=== PATIENT | male | born 1970 | race Caucasian/White ===

== ENCOUNTER 2021-04-03 14:03 | Emergency (ER) | payer BC ==
[~2021-04-03] VITALS: Ht 172.7 cm; Wt 78.3 kg
[2021-04-03] MEDS ORDERED: BOOSTRIX/ADACEL VACCINE (DIPHTH/PERTUSS/ACELL/TETANUS) 0.5ML SYR IM ONE (14:35)
--- NOTE | 2021-04-03 14:52 | REP ---
INDICATION: fb left thumb COMPARISON: None. TECHNIQUE: AP, lateral, bilateral oblique views left 1st digit. FINDINGS: Foreign body consistent with portion of fishhook is identified in the soft tissues adjacent to the distal phalanx. No osseous involvement noted. IMPRESSION: Foreign body in the soft tissues. No osseous involvement noted. <Electronically signed by Blake Almazan > 04/03/21 [id number]
[2021-04-03] MEDS ORDERED: LIDOCAINE 2% MDV 20ML VIAL As Ordered ONE (15:12)
[2021-04-03] MEDS ORDERED: LIDOCAINE 2% MDV 20ML VIAL SC ONE (15:15)
--- OUTSIDE RECORDS SUMMARY | 2021-04-03 15:15 | CCD | Continuity of Care Document ---
Author Author Reymundo BRIONES M.D. Organization Unknown Address [address] [place] [address], Room [address] [place] [id number] Phone [phone] Problems Description No Information Available Social History Type Date Description Comments Sex Unknown Allergies, Adverse Reactions, Alerts Description No Information Available Medications Description No Information Available Immunizations CPT Code Status Date Vaccine Lot # [id number] Given 10/13/2020 Covid-19 Pfizer Vaccine 2nd Dose 30 mcg/ 0[place] [id number] Given 10/13/2020 Covid-19 Pfizer Vaccine 1st Dose 30 mcg/ 0.3 mL Im [id number] Given 09/22/2020 Covid-19 Pfizer Vaccine 1st Dose 30 mcg/ 0.3 mL Im [id number] Vital Signs Description No Information Available Results Description No Information Available Procedures Date Code Description Status 10/13/2020 0002A Covid-19 Pfizer-Biontech Vaccine Administration - 2nd Dose Completed 09/22/2020 0001A Covid-19 Pfizer-Biontech Vaccine Administration - 1st Dose Completed Medical Devices Description No Information Available Encounters Description No Information Available Assessments Date Code Description Provider 10/13/2020 Z23 Encounter for immunization Kavon Briones M.D. 09/22/2020 Z23 Encounter for immunization Kavon Briones M.D. Plan of Treatment No Information Available Functional Status Description No Information Available Mental Status Description No Information Available Referrals Description No Information Available
--- OUTSIDE RECORDS SUMMARY | 2021-04-03 15:15 | CCD ---
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 Name Role Phone Nate, S Tim PA Unavailable Unavailable Nate, S Tim PA Unavailable Unavailable Nate, S Tim PA Unavailable Unavailable Nate, S Tim PA Unavailable Unavailable Nate, S Tim PA Unavailable Unavailable Nate, S Tim PA Unavailable Unavailable Nate, S Tim PA Unavailable Unavailable Nate, S Tim PA Unavailable Unavailable Nate, S Tim PA Unavailable Unavailable Nate, S Tim PA Unavailable Unavailable Nate, S Tim PA Unavailable Unavailable Nate, S Tim PA Unavailable Unavailable Nate, S Tim PA Unavailable Unavailable Nate, S Tim PA Unavailable Unavailable Nate, S Tim PA Unavailable Unavailable Nate, S Tim PA Unavailable Unavailable Nate, S Tim PA Unavailable Unavailable Nate, S Tim PA Unavailable Unavailable Nate, S Tim PA Unavailable Unavailable Nate, S Tim PA Unavailable Unavailable Nate, S Tim PA Unavailable Unavailable Nate, S Tim PA Unavailable Unavailable Nate, S Tim PA Unavailable Unavailable Nate, S Tim PA Unavailable Unavailable Nate, S Tim PA Unavailable Unavailable Nate, S Tim PA Unavailable Unavailable Nate, S Tim PA Unavailable Unavailable Nate, S Tim PA Unavailable Unavailable Nate, S Tim PA Unavailable Unavailable Nate, S Tim PA Unavailable Unavailable Nate, S Tim PA Unavailable Unavailable Nate, S Tim PA Unavailable Unavailable Nate, S Tim PA Unavailable Unavailable Nate, S Tim PA Unavailable Unavailable Nate, S Tim PA Unavailable Unavailable Nate, S Tim PA Unavailable Unavailable Nate, S Tim PA Unavailable Unavailable Nate, S Tim PA Unavailable Unavailable Nate, S Tim PA Unavailable Unavailable Nate, S Tim PA Unavailable Unavailable Nate, S Tim PA Unavailable Unavailable Nate, S Tim PA Unavailable Unavailable Nate, S Tim PA Unavailable Unavailable Nate, S Tim PA Unavailable Unavailable Nate, S Tim PA Unavailable Unavailable Nate, S Tim PA Unavailable Unavailable Nate, S Tim PA Unavailable Unavailable Nate, S Tim PA Unavailable Unavailable Nate, S Tim PA Unavailable Unavailable Nate, S Tim PA Unavailable Unavailable Nate, S Tim PA Unavailable Unavailable Nate, S Tim PA Unavailable Unavailable Nate, S Tim PA Unavailable Unavailable Ty, M Christopher PA-C Unavailable Unavailable Ty, M Christopher PA-C Unavailable Unavailable Ty, M Christopher PA-C Unavailable Unavailable Ty, M Christopher PA-C Unavailable Unavailable Ty, M Christopher PA-C Unavailable Unavailable Ty, M Christopher PA-C Unavailable Unavailable Ty, M Christopher PA-C Unavailable Unavailable Ty, M Christopher PA-C Unavailable Unavailable Ty, M Christopher PA-C Unavailable Unavailable Ty, M Christopher PA-C Unavailable Unavailable Ty, M Christopher PA-C Unavailable Unavailable Ty, M Christopher PA-C Unavailable Unavailable Ty, M Christopher PA-C Unavailable Unavailable Ty, M Christopher PA-C Unavailable Unavailable Ty, M Christopher PA-C Unavailable Unavailable Ty, M Christopher PA-C Unavailable Unavailable Ty, M Christopher PA-C Unavailable Unavailable Ty, M Christopher PA-C Unavailable Unavailable Ty, M Christopher PA-C Unavailable Unavailable Ty, M Christopher PA-C Unavailable Unavailable Ty, M Christopher PA-C Unavailable Unavailable Ty, M Christopher PA-C Unavailable Unavailable Ty, M Christopher PA-C Unavailable Unavailable Ty, M Christopher PA-C Unavailable Unavailable Ty, M Christopher PA-C Unavailable Unavailable Ty, M Christopher PA-C Unavailable Unavailable Re-disclosure Warning The records that you are about to access may contain information from federally-assisted alcohol or drug abuse programs. If such information is present, then the following federally mandated warning applies: This information has been disclosed to you from records protected by federal confidentiality rules (42 CFR part 2). The federal rules prohibit you from making any further disclosure of this information unless further disclosure is expressly permitted by the written consent of the person to whom it pertains or as otherwise permitted by 42 CFR part 2. A general authorization for the release of medical or other information is NOT sufficient for this purpose. The Federal rules restrict any use of the information to criminally investigate or prosecute any alcohol or drug abuse patient.The records that you are about to access may contain highly sensitive health information, the redisclosure of which is protected by Article 27-F of the [facility] Public Health law. If you continue you may have access to information: Regarding HIV / AIDS; Provided by facilities licensed or operated by the [facility] Office of Mental Health; or Provided by the [facility] Office for People With Developmental Disabilities. If such information is present, then the following [facility] mandated warning applies: This information has been disclosed to you from confidential records which are protected by state law. State law prohibits you from making any further disclosure of this information without the specific written consent of the person to whom it pertains, or as otherwise permitted by law. Any unauthorized further disclosure in violation of state law may result in a fine or long term sentence or both. A general authorization for the release of medical or other information is NOT sufficient authorization for further disc losure. Encounters Encounter Providers Location Date Indications Data Source(s ) Outpatient Attender: Eric Ty PA-C 04/03/2021 01:05:41 PM EDT - 04/03/2021 01:41:01 PM EDT [facility] ([facility]) Outpatient Attender: Tim HALL [facility] 04/28 12:00:00 AM EST - 04/29/2020 10:46:[address] [facility] Immunizations Vaccine Date Status Description Data Source(s) Covid-19 Pfizer Vaccine 1st Dose 30 mcg/ 0.3 mL Im 1 12:00:00 AM EDT completed [facility] ([facility]) Covid-19 Pfizer Vaccine 2nd Dose 30 mcg/ 0.3 mL Im 1 12:00:00 AM EDT completed [facility] ([facility]) COVID-19 VACCINE Pfizer 10/13/2020 12:00:00 AM EDT completed [facility] Vaccine Series Complete: YESThis Data wa s Submitted to [facility] Via [facility]. Covid-19 Pfizer Vaccine 1st Dose 30 mcg/ 0.3 mL Im 11:56:00 AM EDT completed [facility] ([facility]) COVID-19 VACCINE Pfizer 09/22/2020 12:00:00 AM EDT completed [facility] Vaccine Series Complete: NOThis Data was Submitted to [facility] Via [facility]. Medications No Information Insurance Providers Payer name Policy type / Coverage type Policy ID Covered alliance party ID Covered alliance party's relationship to gillespie Policy Gillespie Plan Information [employer] [id number] Spo VYW [id number] [facility] Commercial Insurance Co. [id number] Self [id number] [employer] and Blue [employer] - [place] Blue Cross/B lue Shield [id number] Spouse [id number] [employer] Blue [employer] - [place] Blue Cross/B lue Shield [id number] Spouse [id number] [employer] [id number] Unk VYW [id number] [place] Plan [facility] Health Maintenance Organization (HMO) [id number] Self [id number] [employer] [id number] Problems, Conditions, and Diagnoses Code Display Name Description Problem Type Effective Dates Data Source(s) R35.0 Frequency of micturition Frequency of micturition Diag nosis 04/28/2020 01:52:33 PM EST [facility] Practices E78.5 Hyperlipidemia, unspecified Hyperlipidemia, unspecifie d Diagnosis 04/28/2020 01:52:33 PM EST [facility] Practices R19.7 Diarrhea, unspecified Diarrhea, unspecified Diagnosis 04/28/2020 01:52:33 PM [facility] Practices R10.9 Unspecified abdominal pain Unspecified abdominal pain Diagnosis 04/28/2020 01:52:33 PM [facility] Surgeries/Procedures Procedure Description Date Indications Data Source(s) Covid-19 Pfizer-Biontech Vaccine Administration - 2nd Dose 10/13/2020 12:00:00 AM EDT [facility] ([facility]) Covid-19 Pfizer-Biontech Vaccine Administration - 1st Dose 09/22/2020 12:00:00 AM EDT [facility] ([facility]) Results ID Date Data Source [id number] 08/28/2020 12:00:00 AM EST [facility] Name Value Range Interpretation Code Description Data Ksenia rce(s) Supporting Document(s) SARS-CoV-2 Ag [Presence] in Respiratory specimen by SHIELA Owens with probe detection negative [facility] This lab was ordered by [facility] and reported by [facility]. ID Date Data Source [id number] 04/29/2020 07:48:12 AM EST [facility]FORMATIONPatient MRN Name Date of Age Gend*PT [id number] Reymundo Nguyen 1970 49 years M ---PT Location Admission Date/Time Visit ID Attending Provider --- --- --- --- EPI ID CSN Admitting Provider [id number] ---Assessment/Plan:Diagnoses and all orders for this visit:Abdominal cramping (Primary)- CBC and differential- Comprehensive metabolic panel- Lipid panel- Celiac disease profile- IgE Allergy Food PanelDiarrhea, unspecified typePossibly IBS. Will check celiac panel and food allergy panel with labs today.Recommend trying low FODMAP diet to start. Consider trial of Bentyl as wellHyperlipidemia, unspecified hyperlipidemia typeOn statin 7+ years ago but stopped on his own and never had lipids rechecked.Check today. Work on low chol diet and exercise.Urinary frequency- POCT Urine DipstickIntermittent for years. Urine dip neg. Monitor for nowSubjective:Patient ID: Reymundo Nguyen is a 49 years male.Patient presents today to establish care. Patient states intermittent GI issuesover the past year.Abdominal PainThis is a chronic problem. The current episode started 2 years ago. The problemoccurs daily. The problem has been gradually worsening. The pain is located inthe generalized abdominal region. The pain is mild. The quality of the pain iscramping. The abdominal pain does not radiate. Associated symptoms includediarrhea and flatus. Pertinent negatives include no anorexia, constipation,fever, nausea or vomiting. Exacerbated by: unknown. He has tried nothing for thesymptoms.Intermittent diarrhea, cramping, bloating. Tried to keep food diary but wasunable to figure out cause. Cut back on dairy and eggs but still has symptoms.Had elevated lipids in the past. States at one point he was on a statin fromprevious PCP but this was 7+ years ago and has not had recheck since.PHQ-2/PHQ-9 Depression ScreeningFrequency of the following problems over the past two weeks:Little interest or pleasure in doing things: 0 - not at allFeeling down, depressed, or hopeless: 0 - not at allPHQ-2 Score: 0Interpretation of the PHQ depression score severity: NegativeThe following portions of the patient's history were reviewed and updated asappropriate:There is no problem list on file for this patient.Past Medical History:Diagnosis Date Depression HyperlipidemiaPast Surgical History:Procedure Laterality Date PILONIDAL CYST / SINUS EXCISION No Known Drug AllergiesFamily HistoryProblem Relation Age of Onset Depression Mother Hyperlipidemia Mother Depression FatherSocial HistoryTobacco Use Smoking status: Former Smoker Smokeless tobacco: Never UsedSubstance Use Topics Alcohol use: Yes Alcohol/week: 6.0 standard drinks Types: 6 Cans of beer per week Drug use: Yes Types: Marijuana.Review of SystemsConstitutional: Negative for chills and fever.HENT: Negative for congestion, ear pain and sore throat.Respiratory: Negative for cough and shortness of breath.Cardiovascular: Negative for chest pain, palpitations and leg swelling.Gastrointestinal: Positive for abdominal pain, diarrhea and flatus. Negative forabdominal distention, anorexia, blood in stool, constipation, nausea andvomiting. Patient states about 1/week "a little gassy and a little diarrhea"Skin: Negative for rash and wound.Neurological: Negative for dizziness, light-headedness and numbness.Psychiatric/Behavioral: Negative for agitation, confusion and sleep disturbance.The patient is not nervous/anxious.Objective:Vitals: BP 128/79 | Pulse 71 | Wt 77 kg (169 lb 12.8 oz) | SpO2 97%Physical ExamConstitutional: He is oriented to person, place, and time. He appearswell-developed and well- nourished. No distress.HENT:Head: Normocephalic and atraumatic.Right Ear: Tympanic membrane and ear canal normal.Left Ear: Tympanic membrane and ear canal normal.Mouth/Throat: Mucous membranes are normal. No oropharyngeal exudate or posteriororopharyngeal erythema.Eyes: Conjunctivae are normal.Neck: Neck supple. No thyromegaly present.Cardiovascular: Normal rate, regular rhythm and normal heart sounds.No murmur heard.Pulmonary/Chest: Effort normal and breath sounds normal. No respiratorydistress. He has no wheezes. He has no rales.Abdominal: Soft. Bowel sounds are normal. There is no tenderness.Lymphadenopathy: He has no cervical adenopathy.Neurological: He is alert and oriented to person, place, and time.Skin: Skin is warm and dry.Psychiatric: He has a normal mood and affect. His behavior is normal. Thoughtcontent normal. Name Value Range Interpretation Code Description Data [facility](s) Supporting Document(s) ID Date Data Source [id number] 05/01/2020 01:30:03 PM EST [facility] Name Value Range Interpretation Code Description Data [facility](s) Supporting Document(s) GLIADIN PEPTIDE IGA 9 [arb'U] (<20) Lab [facility] INTERPRET ATION OF RESULTS: < 20 UNITS [id number] UNITS WEAK POSITIVE > 30 UNITS MODERATE TO STRONG POSITIVE The following result was obtained withthe [employer]OVA QUANTA Lite Gliadin IgA II.Results obtained with other manufacturers'assay methods may not be used interchangeably.The magnitude of the reported IgA levelcannot be correlated to an endpoint titer. GLIADIN PEPTIDE IGG 2 [arb'U] (<20) Lab [facility] INTERPRET ATION OF RESULTS: < 20 UNITS [id number] UNITS WEAK POSITIVE > 30 UNITS MODERATE TO STRONG POSITIVE The following result was obtained withthe [employer]OVA QUANTA Lite Gliadin IgG II.Results obtained with other manufacturers'assay methods may not be used interchangeably.The magnitude of the reported IgG levelscannot be correlated to an endpoint titer. IGA @ 313 mg/dL (83-407) [facility] TRANSGLUTAMINASE IGA 8 [arb'U] (<20) [facility] INTERPRET ATION OF RESULTS: < 20 UNITS [id number] UNITS WEAK POSITIVE > 30 UNITS MODERATE TO STRONG POSITIVE The following result was obtained withthe Imagiin.VA QUANTA Lite h-tTG IgA TIMOTEO.Results obtained with other manufacturers'assay methods may not be used interchangeably.The magnitude of the reported IgA levelcannot be correlated to an endpoint titer.Performed at [address] [place] [address] TRANSGLUTAMINASE IGG 3 [arb'U] (<20) [facility] INTERPRET ATION OF RESULTS: < 20 UNITS [id number] UNITS WEAK POSITIVE > 30 UNITS MODERATE TO STRONG POSITIVE The following result was obtained withthe [employer] QUANTA Lite h-tTG IgG TIMOTEO.Results obtained with other manufacturers'assay methods may not be used interchangeably.The magnitude of the reported IgG levelscannot be correlated to an endpoint titer.Performed at [address] [place] [address] ID Date Data Source [id number] 04/29/2020 03:31:30 PM EST [facility] Name Value Range Interpretation Code Description Data [facility](s) Supporting Document(s) IGE, TOTAL @ 74 kU/L (<160) [facility] PEANUT RESULT <0.35 kU/L (0.00-0.35) [facility] PEANUT CLASS 0 [facility] SOYBEAN RESULT <0.35 kU/L (0.00-0.35) [facility] SOYBEAN CLASS 0 [facility] COW'S MILK RESULT <0.35 kU/L (0.00-0.35) [facility] COW'S MILK CLASS 0 [facility] ALMOND RESULT <0.35 kU/L (0.00-0.35) [facility] ALMOND CLASS 0 [facility] PECAN RESULT <0.35 kU/L (0.00-0.35) [facility] PECAN CLASS 0 [facility] CRAB RESULT <0.35 kU/L (0.00-0.35) [facility] CRAB CLASS 0 [facility] SHRIMP RESULT <0.35 kU/L (0.00-0.35) [facility] SHRIMP CLASS 0 [facility] EGG YOLK/WHITE RESULT <0.35 kU/L (0.00-0.35) [facility] EGG YOLK/WHITE CLASS 0 [facility] WALNUT RESULT <0.35 kU/L (0.00-0.35) [facility] WALNUT CLASS 0 [facility] [place] CODFISH RESULT <0.35 kU/L (0.00-0.35) [facility] CODFISH CLASS 0 [facility] WHEAT RESULT <0.35 kU/L (0.00-0.35) [facility] WHEAT CLASS 0 [facility] CORN RESULT <0.35 kU/L (0.00-0.35) [facility] CORN CLASS 0 [facility] REFERENCE RANGES FOR SPECIFIC IgE TESTS: IgE (kU/L) INTERPRETATION < 0.35 CLASS 0 ABSENT/VERY LOW 0.35 to 0.69 CLASS 1 LOW 0.70 to 3.49 CLASS 2 MODERATE 3.50 to 17.49 CLASS 3 HIGH17.50 to 52.49 CLASS 4 VERY HIGH52.50 to 99.99 CLASS 5 VERY HIGH > 99.99 CLASS 6 VERY HIGH ID Date Data Source [id number] 04/28/2020 03:10:[address] [facility] Name Value Range Interpretation Code Description Data [facility] rce(s) Supporting Document(s) WBC 5.9 K/uL 4.2-10.4 [facility] Neutrophil % 65.5 %N 37.0-82.2 [facility] Lymphocyte % 27.2 %L 10.6-50.6 [facility] Monocyte % 6.8 %M 2.8-13.0 [facility] Eosinophil % 0.3 %E 0.0-6.7 [facility] Basophil % 0.2 %B 0.2-1.8 [facility] Neutrophil # 3.9 K/uL 1.8-7.8 [facility] Lymphocyte # 1.6 K/uL 1.0-4.1 [facility] Monocyte # 0.4 K/uL 0.2-1.0 [facility] Eosinophil # 0.0 K/uL 0.0-0.4 [facility] Basophil # 0.0 K/uL 0.0-0.2 [facility] RBC 4.25 M/uL 4.29-5.[address] [facility] Hemoglobin 13.6 g/dL 13.4-17.5 [facility] Hematocrit 40.7 % 40.2-51.1 [facility] MCV 96 fL 80-97 [facility] MCH 32.0 pg 28.2-32.4 [facility] MCHC 33.4 g/dL 32.0-36.0 [facility] RDW 12.6 % 10.7-15.1 [facility] Platelets 208 K/uL 150-450 [facility] ID Date Data Source [id number] 04/28/2020 03:10:00 PM EST [facility] Name Value Range Interpretation Code Description Data Ksenia rce(s) Supporting Document(s) Glucose 51 mg/dL 67-106 L [facility] Urea 16.0 mg/dL 5.0-25.0 [facility] Creat[facility] 1.1 mg/dL 0.5-1.2 [facility] BUN/Creatinine Ratio 14.5 13.0-22.0 [facility] eGFR 71.8 mL/1.73m [facility] Sodium 145 mmol/L 137-147 [facility] Potassium 4.2 mmol/L 3.7-5.4 [facility] Chloride 103 mmol/L 95-107 [facility] Carbon Dioxide 28 mmol/L 21-30 [facility] Anion Gap 14.0 7.0-16.0 [facility] Calcium 9.8 mg/dL 8.8-10.4 [facility] AST 17 U/L 1-41 [facility] ALT 13 U/L 1-43 [facility] Alkaline Phosphatase 33 U/L 36-126 [facility] Total Bilirubin 0.6 mg/dL 0.0-1.2 [facility] Albumin 4.6 g/dL 3.4-4.6 [facility] Total Protein 7.5 g/dL 6.1-8.1 [facility] Globulin 2.9 g/dL 2.2-4.0 [facility] A/G Ratio 1.6 0.9-1.7 [facility] ALP now traceable to the IF procedure at 39 ID Date Data Source [id number] 04/28/2020 03:10:[address] [facility] Name Value Range Interpretation Code Description Data Ksenia rce(s) Supporting Document(s) Cholesterol 220 mg/dL 100-[address] [facility] Triglycerides 135 mg/dL 25-160 [facility] HDL 66 mg/dL 40-69 [facility] LDL (calculated) 127 mg/dL 0-130 [facility] VLDL 27.0 mg/dL 6.0-40.0 [facility] Chol/HDL Ratio 3.33 [facility] Values listed are Risk Dependent: Procedure Social History No Information
[2021-04-03] MEDS ORDERED: CEPH500C PO (15:46)
[2021-04-03 15:50] VITALS: BP 148/95
== END 2021-04-03 16:02 | disposition home or self-care (01) ==
LOC: M ED 14:03
DX: S60.352A Superficial foreign body of left thumb, initial encounter (principal); W45.8XXA Other foreign body or object entering through skin, initial encounter; Y92.9 Unspecified place or not applicable; Y93.9 Activity, unspecified; Y99.9 Unspecified external cause status; Z23 Encounter for immunization